=== PATIENT | female | born 2000 | race Caucasian/White ===

== ENCOUNTER 2019-05-29 15:24 | Emergency (ER) | payer SELFPAY ==
[~2019-05-29] VITALS: Ht 154.9 cm; Wt 81.6 kg
[~2019-05-29 15:24] MED LIST: OXYC-302 PO
[2019-05-29 16:25] VITALS: BP 149/86
--- NOTE | 2019-05-29 17:22 | NUR ---
Patient/Caregiver given discharge instructions and they have confirmed that they understand the instructions. Patient ambulatory with steady gait.
== END 2019-05-29 17:23 | disposition home or self-care (01) ==
LOC: ED 16:05
DX: B34.9 Viral infection, unspecified (principal)
CPT/HCPCS: 99281